=== PATIENT | female | born 2000 | race Caucasian/White ===

== ENCOUNTER 2022-10-02 20:30 | Emergency (ER) | payer MEDICAID ==
[2022-10-02 20:31] VITALS: PULSE 91
== END 2022-10-02 21:58 | disposition left against medical advice (07) ==
LOC: ER 20:30
DX: Z53.21 Procedure and treatment not carried out due to patient leaving prior to being seen by health care provider (principal)

== ENCOUNTER 2022-10-03 09:21 | Inpatient (IN) | payer MEDICAID ==
[~2022-10-03] VITALS: Ht 165.1 cm; Wt 73.9 kg
[2022-10-03 09:26] VITALS: O2SAT 99
[2022-10-03 09:56] LABS: BASOPHILS % 0.3 % (0.0-2.0); EOSINOPHILS % 0.1 % (0.0-5.0); HEMATOCRIT. 39.2 % (36.0-48.0); HEMOGLOBIN. 13.6 g/dL (12.0-16.0); LYMPHOCYTES % 12.6 % (20.0-50.0); MEAN CORPUSCULAR HEMOGLOBIN 30.3 pg (28.0-32.0); MEAN CORPUSCULAR VOLUME 87.7 fL (81.0-99.0); MEAN PLATELET VOLUME 7.8 fl (7.4-10.4); MONOCYTES % 4.1 % (2.0-8.0); NEUTROPHILS % 82.9 % (40.0-76.0); PLATELET 354 x1000/uL (130-400); RED BLOOD CELL COUNT 4.47 mill/uL (4.2-5.4); RED CELL DISTRIBUTION WIDTH 12.6 % (11.6-14.6)
[2022-10-03] MEDS ORDERED: FAMOTIDINE 20MG TABLET PO ONE (10:00)
[2022-10-03] MEDS ORDERED: KETOROLAC 60MG/2ML VIAL IM ONE (10:00)
[2022-10-03 10:06] LABS: CHLORIDE 103 mEq/L (98-107); HCG SCREEN NEGATIVE
[2022-10-03 10:29] LABS: CLARITY URINE CLEAR (CLEAR); COLOR URINE YELLOW (YELLOW); KETONES URINE NEGATIVE (NEGATIVE); LEUKOCYTE ESTERASE URINE NEGATIVE (NEGATIVE); NITRITE URINE NEGATIVE (NEGATIVE); OCCULT BLOOD URINE 1+ (NEGATIVE); PROTEIN URINE NEGATIVE (NEGATIVE); SPECIFIC GRAVITY URINE 1.003 (1.005-1.030); UROBILINOGEN URINE 0.2 E.U./dL (0.2-1.0)
[2022-10-03] MEDS ORDERED: MORPHINE SULFATE 4 MG/ML CPJ (NOT FOR IM USE) IV ONE (11:30)
[2022-10-03] MEDS ORDERED: PIPERACILLIN/TAZ 3.375G PREMIX 50 ML IV NR (11:30)
[2022-10-03] MEDS ORDERED: PIPERACILLIN/TAZOBACTAM 3.375GM/50ML PREMIX IV ONE (11:30)
[2022-10-03 11:34] LABS: PROTHROMBIN TIME 10.8 sec (9.6-11.0)
[2022-10-03] MEDS ORDERED: ONDANSETRON HCL 4MG/2ML INJ IV ONE (11:45)
[2022-10-03] MEDS ORDERED: SODIUM CHLORIDE 0.9% 1000ML BAG (SEPSIS BOLUS) IV ONE (11:45)
[2022-10-03 12:00] VITALS: TEMP 98.5
[2022-10-03] MEDS ORDERED: BUPIVACAINE HCL/PF 0.5% (5MG/ML) 10ML ONE (12:40)
[2022-10-03] MEDS ORDERED: SKIN ADHESIVE 0.7 GM EA TOP ONE (12:40)
[2022-10-03] MEDS ORDERED: PROPOFOL 200MG/20ML VIAL IV ONE (12:49)
[2022-10-03] MEDS ORDERED: ONDANSETRON HCL 4MG/2ML INJ ONE (12:51)
[2022-10-03] MEDS ORDERED: LIDOCAINE HCL 1% 20ML VIAL (Pyxis) INJ ONE (12:51)
[2022-10-03] MEDS ORDERED: CEFAZOLIN SODIUM 1000MG/VIAL ONE (12:53)
[2022-10-03] MEDS ORDERED: DEXAMETHASONE 4MG/ML 1ML VIAL ONE (12:53)
[2022-10-03] MEDS ORDERED: ROCURONIUM BROMIDE 10MG/ML VIAL 5ML IV ONE (12:53)
[2022-10-03] MEDS ORDERED: MIDAZOLAM HCL 2 MG/2 ML VIAL ONE (12:55)
[2022-10-03] MEDS ORDERED: FENTANYL CITRATE/PF 50MCG/ML 2ML VIAL ONE ×2 (12:55→14:06)
[2022-10-03] MEDS ORDERED: SUCCINYLCHOLINE CHLORIDE 200MG/10ML IV ONE ×3 (13:40→13:58)
[2022-10-03] MEDS ORDERED: KETOROLAC 30MG/ML VIAL ONE (13:46)
[2022-10-03] MEDS ORDERED: FENTANYL CITRATE/PF 50MCG/ML 2ML VIAL IV PRN (14:00)
[2022-10-03] MEDS ORDERED: MORPHINE SULFATE 2 MG/ML CPJ (NOT FOR IM USE) IV PRN (14:00)
[2022-10-03] MEDS ORDERED: MEPERIDINE HCL/PF 25MG/ML CPJ IV PRN (14:00)
[2022-10-03] MEDS ORDERED: HYDROMORPHONE HCL/PF 2MG/ML CPJ IV PRN (14:00)
[2022-10-03] MEDS ORDERED: ONDANSETRON HCL 4MG/2ML INJ IV NR (15:00)
[2022-10-03 15:09] VITALS: BP 130/72; PULSE 86; RESP 25
[2022-10-03] MEDS ORDERED: METOCLOPRAMIDE HCL 10MG/2ML VIAL IV NR (17:30)
== END 2022-10-03 18:30 | disposition home or self-care (01) | DRG 234 ==
LOC: ER 09:21 → 6EST 12:56 → EDBEDREQ 12:58 → EDBEDREQTM 12:58
PROVIDERS: ADMIT Internal Medicine; ATTEND Internal Medicine
PROC: 0DTJ4ZZ Resection of Appendix, Percutaneous Endoscopic Approach (ICD-10-PCS; principal; 2022-10-03)
DX: K35.80 Unspecified acute appendicitis (principal); R11.2 Nausea with vomiting, unspecified
CPT/HCPCS: 36415; 74176; 76705; 80053; 81003; 83605; 84703; 85025; 86850; 86900; 88304; 99285; J0330; J0690; J1100; J1170; J1885; J2250; J2270; J2405; J2543; J2704; J2765; J3010; J3490; J7030